=== PATIENT | female | born 1965 | race Caucasian/White ===

== ENCOUNTER 2017-03-27 16:20 | Emergency (ER) | payer SELFPAY ==
[~2017-03-27] VITALS: Ht 165.1 cm; Wt 64.0 kg
[2017-03-27 16:38] VITALS: BP 118/66
== END 2017-03-27 18:00 | disposition home or self-care (01) ==
LOC: ER 16:38
DX: C18.7 Malignant neoplasm of sigmoid colon (principal); F17.210 Nicotine dependence, cigarettes, uncomplicated; F12.10 Cannabis abuse, uncomplicated
CPT/HCPCS: 99281